=== PATIENT | female | born 1940 | race Caucasian/White ===

== ENCOUNTER → 2017-11-08 | Outpatient (CLI) | payer OTHER | END | disposition home or self-care (01) | DX: M17.12 Unilateral primary osteoarthritis, left knee (principal); R26.2 Difficulty in walking, not elsewhere classified; M25.562 Pain in left knee; M25.662 Stiffness of left knee, not elsewhere classified; M62.81 Muscle weakness (generalized); Z74.1 Need for assistance with personal care | CPT/HCPCS: 97161 GP; 97165 GO; 97530 GP; 97535 GO; G8978 GP; G8979 GP; G8980 GP; G8987 GO; G8988 GO; G8989 GO ==

== ENCOUNTER 2017-11-20 21:11 | Inpatient (IN) | payer OTHER ==
[~2017-11-20] VITALS: Ht 149.9 cm; Wt 90.0 kg
[~2017-11-20 21:11] MED LIST: HYDROCHLOROTHIA25 MG PO; KLOR-CON M2020 MEQ PO; LASIX20 MG PO; MICARDIS80 MG PO; NORVASC5 MG PO; VITAMIN D5000 UNI1 PO
[2017-11-21 06:25] VITALS: BP 174/77
[2017-11-21 10:26] LABS: HEMATOCRIT 33.6 % (36.0-46.0); MCH 29.3 PG (29.0-34.0); MCHC 32.1 G/DL (30.0-36.0); MCV 91.1 FL (83-99); PLATELET COUNT 164 K/uL (156-360); RBC DIS.WIDTH-CV 12.5 % (11.8-14.6); RBC DIS.WIDTH-SD 41.4 % (39-53); RED BLOOD COUNT 3.69 M/uL (3.80-5.20); WHITE BLOOD COUNT 5.9 K/uL (4.1-10.2)
[2017-11-21 10:27] LABS: HEMOGLOBIN 10.8 G/DL (11.9-15.5)
[2017-11-21 11:23] VITALS: BP 141/70
[2017-11-21 15:38] VITALS: BP 126/65
[2017-11-21 19:49] VITALS: BP 138/63
[2017-11-22 00:26] VITALS: BP 119/80
[2017-11-22 04:05] VITALS: BP 133/62
[2017-11-22 05:52] LABS: HEMATOCRIT 32.7 % (36.0-46.0); HEMOGLOBIN 10.4 G/DL (11.9-15.5); MCV 91.1 FL (83-99)
[2017-11-22 05:55] LABS: CHLORIDE 108 MEQ/L (99-109); CREATININE 0.7 MG/DL (0.6-1.3); GFR ESTIMATE (CALCULATED) > 59 mL/min/; GLUCOSE 116 mg/dL (70-99); SODIUM 141 MEQ/L (136-147); UREA NITROGEN (BUN) 17 mg/dL (9-23)
[2017-11-22 12:06] VITALS: BP 118/57
[2017-11-22 15:46] VITALS: BP 130/60
[2017-11-22 20:27] VITALS: BP 167/73
[2017-11-23 00:05] VITALS: BP 155/70
[2017-11-23 04:28] VITALS: BP 159/67
[2017-11-23 04:56] LABS: HEMOGLOBIN 10.2 G/DL (11.9-15.5)
[2017-11-23 08:43] VITALS: BP 183/80
[2017-11-23] MEDS ORDERED: LOVENOX40 MG/0.4 SC (09:07)
[2017-11-23] MEDS ORDERED: HYDROCODON-ACE1 EAC7 PO (09:07)
[2017-11-23 12:00] VITALS: BP 138/75
[2017-11-23 15:57] VITALS: BP 137/61
[2017-11-23 19:50] VITALS: BP 132/60
[2017-11-24 00:15] VITALS: BP 160/70
[2017-11-24 04:07] VITALS: BP 153/64
[2017-11-24 08:02] VITALS: BP 141/66
[2017-11-24 12:19] VITALS: BP 137/63
== END 2017-11-24 13:20 | DRG 470 ==
LOC: ENRESERV 21:11 → 2SOUTH 11-21 05:38 → 3WEST 11-21 05:38 → 2SOUTH 11-21 08:40 → 3WEST 11-21 11:05 → 2SOUTH 11-21 14:58 → 3WEST 11-24 13:20
PROVIDERS: Orthopaedic Surgery
DX: M17.12 Unilateral primary osteoarthritis, left knee (principal); M96.820 Accidental puncture and laceration of a musculoskeletal structure during a musculoskeletal system procedure; Y65.8 Other specified misadventures during surgical and medical care; I10 Essential (primary) hypertension; E66.9 Obesity, unspecified; Z68.41 Body mass index [BMI] 40.0-44.9, adult; Z88.0 Allergy status to penicillin; Z88.2 Allergy status to sulfonamides; Z88.4 Allergy status to anesthetic agent; Z80.1 Family history of malignant neoplasm of trachea, bronchus and lung; Z80.3 Family history of malignant neoplasm of breast
CPT/HCPCS: 71045; 73560; 80048; 85014; 85018; 85027; 93005; C1713; J0131; J1100; J1650; J2250; J2405; J2795; J7050